=== PATIENT | female | born 2000 | race Caucasian/White ===

== ENCOUNTER 2021-11-28 16:36 | Emergency (ER) | payer MEDICAID, OTHER ==
[~2021-11-28] VITALS: Ht 162.6 cm; Wt 65.3 kg
[2021-11-28 17:05] VITALS: BP 120/72
[2021-11-28 21:40] VITALS: BP 120/72
== END 2021-11-28 21:40 | disposition home or self-care (01) ==
LOC: MED 16:36
DX: N94.6 Dysmenorrhea, unspecified (principal)
CPT/HCPCS: 76856; 81025; 93976; 99284; Q0092

== ENCOUNTER 2022-06-28 21:49 | Emergency (ER) | payer OTHER ==
[~2022-06-28] VITALS: Ht 162.6 cm; Wt 68.0 kg
[2022-06-28 21:50] VITALS: BP 124/68
--- NOTE | 2022-06-28 21:56 | NUR ---
TO LOBBY FOLLOWING TRIAGE. UA OBTAINED
--- NOTE | 2022-06-28 23:50 | NUR ---
PT TAKEN TO RADIOLOGY
--- NOTE | 2022-06-28 23:54 | NUR ---
PT RETURN FROM RAD
--- NOTE | 2022-06-29 00:08 | NUR ---
PT TAKEN TO BED 2
--- NOTE | 2022-06-29 00:20 | NUR ---
21 Y/O F BIB SELF C/O UTI SX AND PAIN 04/23 STARTED THIS MORNING. PT RADIATES TO HER LOWER ABD, LOWER BACK AND NECK PAIN ALSO CHEST PRESSURE. "I HAVE A UTI. I SAW MY PMD TODAY AND WAS GIVEN CEPHALEXIN AND NOW I HAVE A LOT OF PAIN" NK[facility] PMH : UTI'S
--- NOTE | 2022-06-29 01:42 | NUR ---
Patient discharged with v/s stable. Written and verbal after care instructions given and explained. Patient verbalized understanding. Ambulatory with steady gait. All questions addressed prior to discharge. Advised to follow up with PMD.
--- NOTE | 2022-06-29 01:48 | NUR ---
The patient's care was reviewed and supervised by Awa Doll RN.
== END 2022-06-29 01:42 | disposition home or self-care (01) ==
LOC: MED 21:49
DX: R07.89 Other chest pain (principal)
CPT/HCPCS: 71045; 81002; 81025; 93005; 99283